=== PATIENT | female | born 1965 | race Caucasian/White ===

== ENCOUNTER 2019-03-12 08:40 | Emergency (ER) | payer OTHER ==
--- NOTE | 2019-03-12 09:31 | EDM.PDOC ---
ED HPI GENERAL MEDICAL PROBLEM - General Chief Complaint: Gastrointestinal Problem Stated Complaint: STOMACH PAIN CRAMPING FOR AWHILE Time Seen by Provider: 03/12/19 09:19 Source of Information: Reports: Patient, Family, RN Notes Reviewed History Limitations: Reports: Language Barrier - History of Present Illness INITIAL COMMENTS - FREE TEXT/NARRATIVE: 53-year-old female presents emergency department today complaint of diarrhea for the last 3 weeks. She is visiting from [facility] has been here for the summer months does not speak [place] her daughter is present and translates for her she does describe cramping abdominal pain is intermittent, one to 2 loose stools per day, no fevers no abdominal surgeries no nausea or vomiting no other symptoms. 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 Denies: Bloody Stool, Nausea, Vomiting : Reports: No Symptoms Musculoskeletal: Reports: No Symptoms Skin: Reports: No Symptoms Neurological: Reports: No Symptoms ED EXAM, GI/ABD - Physical Exam Exam: See Below Exam Limited By: Language Barrier General Appearance: Alert, WD/WN, No Apparent Distress Respiratory/Chest: No Respiratory Distress, Lungs Clear, Normal Breath Sounds, No Accessory Muscle Use, Chest Non-Tender Cardiovascular: Regular Rate, Rhythm, No Murmur GI/Abdominal Exam: Normal Bowel Sounds, Soft, Non-Tender, No Distention, No Mass Back Exam: Normal Inspection, Full Range of Motion. No: CVA Tenderness (R), CVA Tenderness (L) Extremities: Normal Inspection, Normal Range of Motion Course - Vital Signs Last Recorded V/S: Last Vital Signs Temp 97.1 F 03/12/19 12:14 Pulse 97 03/12/19 12:14 Resp 16 03/12/19 12:14 BP 141/88 H 03/12/19 12:14 Pulse Ox 97 03/12/19 12:14 - Orders/Labs/Meds Orders: Active Orders 24 hr Category Date Time Status CLOSTRIDIUM DIFFICILE BY PCR [RM] Stat Lab 03/12/19 09:51 Results CULTURE STOOL + SHIGATOX [RM] Stat Lab 03/12/19 09:51 Results CULTURE URINE [RM] Urgent Lab 03/12/19 12:30 Received OVA + PARASITE EXAM Stat Lab 03/12/19 11:07 Received Isolation [COMM] Stat Oth 03/12/19 09:26 Ordered Labs: Laboratory Tests 03/12/19 03/12/19 03/12/19 Range/Units 09:34 09:34 10:45 WBC 5.7 (4.5-11.0) K/uL RBC 6.06 H (3.30-5.50) M/uL Hgb 12.9 (12.0-15.0) g/dL Hct 39.7 (36.0-48.0) % MCV 66 L (80-98) fL MCH 21 L (27-31) pg MCHC 33 (32-36) % Plt Count 319 (150-400) K/uL Neut % (Auto) 51 (36-66) % Lymph % (Auto) 38 (24-44) % [place] % (Auto) 7 H (2-6) % Eos % (Auto) 3 (2-4) % Baso % (Auto) 1 (0-1) % Sodium 144 (140-148) mmol/L Potassium 5.1 (3.6-5.2) mmol/L Chloride 107 (100-108) mmol/L Carbon Dioxide 27 (21-32) mmol/L Anion Gap 9.9 (5.0-14.0) mmol/L BUN 11 (7-18) mg/dL Creatinine 0.8 (0.6-1.0) mg/dL Est Cr Clr Drug Dosing 69.61 mL/min Estimated GFR (MDRD) > 60 (>60) Glucose 102 (74-106) mg/dL Calcium 9.5 (8.5-10.1) mg/dL Total Bilirubin 0.4 (0.2-1.0) mg/dL AST 13 L (15-37) U/L ALT 21 (12-78) U/L Alkaline Phosphatase 67 (46-116) U/L Total Protein 7.8 (6.4-8.2) g/dL Albumin 3.8 (3.4-5.0) g/dL Globulin 4.0 H (2.3-3.5) g/dL Albumin/Globulin Ratio 1.0 L (1.2-2.2) TSH, Ultra Sensitive 1.662 (0.358-3.740) uIU/mL Urine Color Yellow Urine Appearance Slightly cloudy Urine pH 6.0 (4.5-8.0) Ur Specific [place] 1.010 (1.008-1.030) Urine Protein Negative (NEGATIVE) mg/dL Urine Glucose (UA) Normal (NEGATIVE) mg/dL Urine Ketones Negative (NEGATIVE) mg/dL Urine Occult Blood Large (NEGATIVE) Urine Nitrite Negative (NEGATIVE) Urine Bilirubin Negative (NEGATIVE) Urine Urobilinogen Normal (NORMAL) mg/dL Ur Leukocyte Esterase Small (NEGATIVE) Urine RBC 5-10 H (0-5) Urine WBC 20-30 H (0-5) Ur Epithelial Cells Many Amorphous Sediment Few Urine Bacteria Not seen Urine Mucus Not seen Departure - Departure Time of Disposition: 12:37 Disposition: Home, Self-Care 01 Condition: Fair Clinical Impression: UTI, Urinary tract infectious disease - Discharge Information Prescriptions: Ciprofloxacin HCl [Cipro] 250 mg PO BID #6 tablet Instructions: Urinary Tract Infection, Adult Referrals: PCP,None [Primary Care Provider] - Forms: ED Department Discharge Additional Instructions: Take full course of antibiotics, we will call you with culture results when they become available, Please followup with your primary care provider in 3-5 days if not better, please call return to the emergency department with worsening of symptoms. - My Orders Last 24 Hours: My Active Orders 03/12/19 09:26 Isolation [COMM] Stat 03/12/19 09:51 CLOSTRIDIUM DIFFICILE BY PCR [RM] Stat CULTURE STOOL + SHIGATOX [RM] Stat 03/12/19 11:07 OVA + PARASITE EXAM Stat 03/12/19 12:30 CULTURE URINE [RM] Urgent - Assessment/Plan Last 24 Hours: My Active Orders 03/12/19 09:26 Isolation [COMM] Stat 03/12/19 09:51 CLOSTRIDIUM DIFFICILE BY PCR [RM] Stat CULTURE STOOL + SHIGATOX [RM] Stat 03/12/19 11:07 OVA + PARASITE EXAM Stat 03/12/19 12:30 CULTURE URINE [RM] Urgent Plan: Assessment Acuity = acute Site and laterality = urinary tract infection with loose watery stools Etiology = probable bacterial cause Manifestations = none Location of injury = Home Lab values = CBC, CMP unremarkable urinalysis reveals 5-10 RBCs consistent hematuria 2030 WBCs consistent with pyuria cultures pending, Giardia was negative ove and parasites stool culture pending WBCs and stool was minimal Plan I did review lab work with them because of her urinary tract symptoms to treat her with ciprofloxacin 250 by mouth twice a day 3 days ever follow-up with primary care in the next 3-5 days if no improvement This note was dictated using [employer] voice recognition software please call with any questions on syntax or grammar.
== END 2019-03-12 13:02 | disposition home or self-care (01) ==
LOC: JP.ED 08:40
DX: N39.0 Urinary tract infection, site not specified (principal); R19.7 Diarrhea, unspecified; F17.210 Nicotine dependence, cigarettes, uncomplicated; Z79.899 Other long term (current) drug therapy
CPT/HCPCS: 36415; 80053; 81001; 84443; 85025; 87046; 87086; 87177; 87209; 87493; 87899; 89055; 99283